=== PATIENT | female | born 2000 | race Hispanic/Latino ===

== ENCOUNTER 2025-01-03 05:21 | Emergency (ER) | payer OTHER ==
[~2025-01-03] VITALS: Ht 160 cm; Wt 78.0 kg
[2025-01-03] MEDS ORDERED: Raltegravir Potassium 400 MG TAB PO ONE (06:05)
[2025-01-03] MEDS ORDERED: TRUVADA1 TAB PO (06:06)
[2025-01-03] MEDS ORDERED: ISENTRESS HD600 MG PO (06:06)
[2025-01-03] MEDS ORDERED: ISENTRESS400 MG PO (07:26)
[2025-01-03] MEDS ORDERED: LAMIVUDINE150 MG PO (07:26)
[2025-01-03] MEDS ORDERED: ZIDOVUDINE300 MG PO (07:26)
[2025-01-03 07:28] VITALS: BP 125/93
[2025-01-03] MEDS ORDERED: ONDANSETRON4 MG PO (07:29)
== END 2025-01-03 07:34 | disposition home or self-care (01) | DRG 605 ==
LOC: ED 05:21
DX: S61.236A Puncture wound without foreign body of right little finger without damage to nail, initial encounter (principal); W46.1XXA Contact with contaminated hypodermic needle, initial encounter; Y93.F9 Activity, other caregiving; Y92.239 Unspecified place in hospital as the place of occurrence of the external cause; Y99.0 Civilian activity done for income or pay